=== PATIENT | male | born 1995 | race Caucasian/White ===

== ENCOUNTER 2023-12-11 08:12 | Emergency (ER) | payer BC, SELFPAY ==
[2023-12-11 08:19] VITALS: BP 140/88; PULSE 88; RESP 20; TEMP 36.8; O2SAT 100
--- NOTE | 2023-12-11 08:33 | ED_ITS ---
HPI - Wound/Laceration General Chief Complaint: Wound/Laceration Stated Complaint: finger lac Time Seen by Provider: 12/11/23 08:30 History of Present Illness HPI narrative: Pt was opening something with knife and it slipped and cut left index finger. Pt denies other injury, Pt can flex and extend finger. Tetanus not UTD. Related Data Allergies Allergy/AdvReac Type Severity Reaction Status Date / Time No Known Allergies Allergy Verified 12/11/23 08:22 Review of Systems Review of Systems: All systems reviewed & are unremarkable except as noted in HPI and below Exam Const: General: healthy appearing and no acute distress Nutritional Appearance: well nourished Orientation/consciousness: patient oriented x3 Limitations: no limitations Skin: General skin exam: normal color Wounds: wounds noted Other: 1.5 cm laceration PIP joint dorsal left index finger. Flexion and extension of joint intact. sensation intact. Neuro: General: patient oriented x3 and moves all extremities Speech: normal speech Extrem: General: no clubbing, cyanosis or edema Psych: Mental Status: mental status grossly normal Affect: normal affect Attitude: cooperative Course Vital Signs Vital signs: Vital Signs Temperature 98.2 F 12/11/23 08:19 Pulse Rate 88 12/11/23 08:19 Respiratory Rate 20 12/11/23 08:19 Blood Pressure 140/88 12/11/23 08:19 Pulse Oximetry 100 12/11/23 08:19 Temperature 98.2 F 12/11/23 08:19 Pulse Rate 88 12/11/23 08:19 Respiratory Rate 20 12/11/23 08:19 Blood Pressure 140/88 12/11/23 08:19 Pulse Oximetry 100 12/11/23 08:19 Procedures Laceration Laceration 1: Side (If applicable): left Size (cm): 1.5 Description: flap Depth: simple, single layer Local Anesthetic: lidocaine 1% Amount of anesthesia used (mL): 3 Pre-repair: wound explored ====== Skin Level ====== Skin layer closed with: nylon Size (cm): 4-0 Number of sutures: 3 Technique: simple, interrupted ====== Subcutaneous Layer ====== ====== Muscle Layer ====== ====== Tendon Layer ====== Discharge Plan Discharge Clinical Impression: Laceration Patient Disposition: Home, Self-Care Condition: Improved Instructions: Antibiotic Form, Care For Your Stitches (ED), Laceration (ED) Additional Instructions: suture removal 10 days Follow-up/Referrals: PHYSICIAN,SPINNING AND WINDING SUPERVISOR [Non-Staff] -
[2023-12-11] MEDS: TETANUS,DIPHTHERIA,AC PERTUSSIS ADULT (0.5 ML) BOOSTRIX IM (08:42)
== END 2023-12-11 09:38 | disposition home or self-care (01) ==
PROVIDERS: Emergency Provider Emergency Medicine
DX: S61.211A Laceration without foreign body of left index finger without damage to nail, initial encounter (principal); Z23 Encounter for immunization; W26.0XXA Contact with knife, initial encounter
CPT/HCPCS: 12001; 90471; 90715; 99282